=== PATIENT | female | born 1995 | race Hispanic/Latino ===

== ENCOUNTER 2018-12-11 14:08 | Outpatient (CLI) | payer OTHER ==
[2018-12-11 14:24] LABS: BHCG - Serum Negative (NEGATIVE); Pregs Control Bar Appear? YES (CONTROL BAR)
== END 2018-12-11 14:09 | disposition home or self-care (01) ==
LOC: NAVSJIPCSP 14:08
PROVIDERS: ATTEND Nurse Practitioner Adult Health
DX: N91.2 Amenorrhea, unspecified (principal)
CPT/HCPCS: 36415; 84703